=== PATIENT | female | born 1990 ===

== ENCOUNTER 2018-01-18 13:44 | Inpatient (IN) | payer MEDICAID ==
[2018-01-18] MEDS ORDERED: LACTATED RINGERS 1,000 ML ONE (14:48)
[2018-01-18] MEDS ORDERED: SUBLIMAZE ONE (14:50)
[2018-01-18] MEDS ORDERED: SUBLIMAZE IV ONE (15:08)
[2018-01-18 15:42] LABS: Hematocrit 30.5 % (30.3-42.9); Hemoglobin 9.8 gm/dl (10.1-14.3); Mean Corpuscular HGB Conc 32 % (30-34); Mean Corpuscular Volume 78 fl (79-97); Platelet Count 308 K/mm3 (140-440); Red Blood Count 3.93 M/mm3 (3.65-5.03); Red Cell Distribution Width 17.8 % (13.2-15.2)
[2018-01-18 15:47] LABS: Mean Corpuscular Hemoglobin 25 pg (28-32)
[2018-01-18] MEDS ORDERED: LACTATED RINGERS 1,000 ML IV ONE (16:00)
[2018-01-18] MEDS ORDERED: LACTATED RINGERS 1,000 ML IV SCH (16:00)
[2018-01-18] MEDS ORDERED: PITOCin/NS 20 UNIT/1000ML DRIP 20 UNITS/1,000 ML BAG IV SCH (16:00)
[2018-01-18 17:06] LABS: Basophils % (Manual) 0 % (0.0-1.8); Eosinophils % (Manual) 0 % (0.0-4.3); Myelocytes # (Manual) 0.2 K/mm3; Total Cells Counted 100
[2018-01-18 17:07] LABS: Anisocytosis 1+; Poikilocytosis 1+
--- NOTE | 2018-01-18 17:07 | History and Physical Report ---
History of Present Illness Date of examination: 01/18/18 Date of admission: 01/18/18 13:44 Chief complaint: I'm in labor History of present illness: Patient is a 27 year old who presents in labor from the office at 38.6 weeks where she was found to be 5 cm. She has had an uncomplicated course. Past History Past Medical History: no pertinent history Past Surgical History: no surgical history Family/Genetic History: none Social history: - Obstetrical History Expected Date of Delivery: 01/26/18 Actual Gestation: 38 Week(s) 6 Day(s) : 2 Number of Living Children: 1 Medications and Allergies Allergies Allergy/AdvReac Type Severity Reaction Status Date / Time No Known Allergies Allergy Unverified 01/18/18 14:27 Home Medications Medication Instructions Recorded Confirmed Last Taken Type No Known Home Medications [No 01/18/18 01/18/18 Unknown History Reported Home Medications] Active Meds: Active Medications Lactated Ringer's (Lactated Ringers) 1,000 mls @ 125 mls/hr IV DIRECT SONDRA Oxytocin/Sodium Chloride (Pitocin/Ns 20 Unit/1000ml Drip) 20 units in 1,000 mls @ 0 mls/hr IV DIRECT SONDRA Review of Systems All systems: negative Genitourinary: contractions - Physical Exam Breasts: Positive: deferred Cardiovascular: Regular rate, Normal S1, Normal S2 Lungs: Positive: Clear to auscultation, Normal air movement Abdomen: Positive: normal appearance, soft, normal bowel sounds Genitourinary (Female): Positive: normal external genitalia, normal perenium Vulva: both: normal Vagina: Positive: normal moisture Uterus: Positive: normal size Extremities: Positive: normal Results Result Diagrams: 01/18/18 15:15 Abnormal lab results 01/18/18 Range/Units 15:15 WBC 16.4 H (4.5-11.0) K/mm3 Hgb 9.8 L (10.1-14.3) gm/dl MCV 78 L (79-97) fl MCH 25 L (28-32) pg RDW 17.8 H (13.2-15.2) % All other labs normal. Assessment and Plan IUP at 38.6 in active labor. Admit for labor management. Anticipate .
[2018-01-18] MEDS ORDERED: BENADRYL PO PRN (17:10)
[2018-01-18] MEDS ORDERED: TUCKS PAD TP PRN (17:10)
[2018-01-18] MEDS ORDERED: MILK OF MAGNESIA PO PRN (17:10)
[2018-01-18] MEDS ORDERED: DULCOLAX PR PRN (17:10)
[2018-01-18] MEDS ORDERED: LANSINOH TP PRN (17:10)
[2018-01-18] MEDS ORDERED: TYLENOL PO PRN (17:10)
[2018-01-18] MEDS ORDERED: PHENERGAN PO PRN (17:10)
[2018-01-18] MEDS ORDERED: NORCO 5/325 PO PRN (17:10)
--- NOTE | 2018-01-18 17:10 | Procedure Note ---
OB Delivery Note - Delivery Date of Delivery: 01/18/18 Surgeon: JUAN MCKEE Estimated blood loss: 100cc - Vaginal Delivery presentation: vertex Delivery position: OA Intrapartum events: precipitous labor- <3hr (patient had srom with immediate progression to 10cm) Delivery induction: none Delivery monitor: external FHT, external uterine Route of delivery: Delivery placenta: spontaneous Delivery cord: 3 umbilical vessels Delivery laceration: none Anesthesia: none Delivery comments: Viable female delivered over intact perineum at 1556. had spontaneous cry and was placed on maternal chest. Cord clamped and cut with done pulsating. apgars 8,9. Weight 7 pounds 3 ounces , 17 3/4 inches. Placenta delivered at 1626 without difficulty. EBL 100 - A at 1 minute: 8 at 5 minutes: 9 Infant Gender: Female (weight 7 pounds 3 ounces)
[2018-01-18] MEDS ORDERED: SODIUM CHLORIDE FLUSH SYRINGE 10 ML IV NR (18:00)
[2018-01-18] MEDS ORDERED: MOTRIN PO ONE (18:55)
[2018-01-18] MEDS: MOTRIN PO SCH (19:00)
[2018-01-18] MEDS: COLACE PO SCH (22:00)
[2018-01-19] MEDS: MOTRIN PO SCH ×3 (06:30→13:42)
[2018-01-19 06:51] LABS: Hematocrit 31.3 % (30.3-42.9); Hemoglobin 9.8 gm/dl (10.1-14.3)
--- NOTE | 2018-01-19 07:57 | Progress Note ---
Assessment and Plan PPD 1 s/p . Doing well. Subjective - Subjective Date of service: 01/19/18 Interval history: Patient is a 27 year old who presents in labor from the office at 38.6 weeks where she was found to be 5 cm. She has had an uncomplicated course. Patient reports: voiding normally, pain well controlled, ambulating normally : doing well Objective - Vital Signs Latest vital signs: Vital Signs Temp Pulse Resp BP Pulse Ox 01/19/18 00:02 99.0 F 80 20 103/57 95 01/18/18 18:56 16 Intake and Output 01/18/18 01/19/18 01/19/18 22:59 06:59 14:59 Output Total 550 450 Balance -550 -450 Output: Urine 550 450 Void 550 450 Other: Total, Output Amount 550 450 # Voids Void 1 Estimated Blood Loss 100 - Exam Breasts: Present: deferred Cardiovascular: Present: Regular rate, Normal S1, Normal S2 Lungs: Present: Clear to auscultation, Normal air movement Abdomen: Present: normal appearance, soft, normal bowel sounds Uterus: Present: normal, firm Extremities: Present: normal Deep Tendon Reflex Grade: Normal +2 - Labs Labs: Abnormal lab results 01/18/18 01/19/18 Range/Units 15:15 06:06 WBC 16.4 H (4.5-11.0) K/mm3 Hgb 9.8 L 9.8 L (10.1-14.3) gm/dl MCV 78 L (79-97) fl MCH 25 L (28-32) pg RDW 17.8 H (13.2-15.2) % Seg Neuts % (Manual) 87.0 H (40.0-70.0) % Lymphocytes % (Manual) 10.0 L (13.4-35.0) % Seg Neutrophils # Man 14.3 H (1.8-7.7) K/mm3
[2018-01-19] MEDS ORDERED: PRENATAL VITAMIN PO SCH (10:00)
[2018-01-19] MEDS: COLACE PO SCH (10:46)
--- NOTE | 2018-01-19 15:58 | Discharge Summary ---
Providers - Providers Date of Admission: 01/18/18 13:44 Date of discharge: 01/19/18 Attending physician: JUAN MCKEE Primary care physician: JUAN MCKEE Hospitalization Reason for admission: active labor Delivery: Episiotomy: none Laceration: none complications: none Discharge diagnosis: IUP at term delivered baby: female Condition at discharge: Good Disposition: DC-01 TO HOME OR SELFCARE Plan - Discharge Medications Prescriptions: Ibuprofen 600 mg PO Q4H PRN #30 tablet PRN Reason: pain - Provider Discharge Summary Activity: routine, no sex for 6 weeks, no heavy lifting 4 weeks, no strenuous exercise Diet: routine Instructions: routine Additional instructions: [] Smoking cessation referral if applicable(refer to patient education folder for contact #) [] Refer to [facility]'s [facility] Booklet Call your doctor immediately for: * Fever > 100.5 * Heavy vaginal bleeding ( >1 pad per hour) * Severe persistent headache * Shortness of breath * Reddened, hot, painful area to leg or breast * Drainage or odor from incision. * Keep incision clean and dry at all times and follow doctor's instructions regarding bathing/showering - Follow up plan Follow up: JUAN MCKEE MD [Primary Care Provider] - 6 Weeks
[2018-01-19] MEDS ORDERED: M-M-R II VACCINE SUB-Q ONE (17:10)
[2018-01-19 18:57] VITALS: BP 110/69
== END 2018-01-19 19:45 | disposition home or self-care (01) | DRG 775 ==
LOC: LD 13:44 → OB 19:06
PROVIDERS: ADMIT Obstetrics & Gynecology; ATTEND Obstetrics & Gynecology
PROC: 10E0XZZ Delivery of Products of Conception, External Approach (ICD-10-PCS; principal; 2018-01-18)
DX: O80 Encounter for full-term uncomplicated delivery (principal); Z3A.38 38 weeks gestation of pregnancy; Z37.0 Single live birth
CPT/HCPCS: 36415; 85007; 85014; 85018; 85025; 86592; 86850; 86900; 86901; 88307; 99211; A6250; G0463; J2590; J3010; J7120